=== PATIENT | female | born 1990 | race Caucasian/White ===

== ENCOUNTER 2017-07-20 04:57 | Inpatient (IN) | payer BC ==
[~2017-07-20] VITALS: Ht 160 cm; Wt 73.9 kg
[2017-07-20 06:21] VITALS: BP_SYST 117
[2017-07-20] MEDS ORDERED: DOCUSATE SODIUM 100 MG CAPSULE PO ONE ×2 (12:00→12:07)
[2017-07-20] MEDS ORDERED: DOCUSATE SODIUM 100 MG CAPSULE PO SCH (21:00)
== END 2017-07-21 12:39 | disposition home or self-care (01) | DRG 782 ==
LOC: SPU 04:57 → OBSVTOIN 09:30
PROVIDERS: ADMIT Specialist; ATTEND Specialist
DX: O44.03 Complete placenta previa NOS or without hemorrhage, third trimester (principal); Z3A.34 34 weeks gestation of pregnancy
CPT/HCPCS: 81002-TC; G0378

== ENCOUNTER 2017-07-26 09:00 | Inpatient (IN) | payer BC ==
[~2017-07-26] VITALS: Ht 160 cm; Wt 73.9 kg
[2017-07-26] MEDS ORDERED: LR 1,000 ML IV SCH ×3 (09:24→16:41)
[2017-07-26 10:41] LABS: BASOPHILS % (AUTO) 0.4 % (0.0-2.0); EOSINOPHILS % (AUTO) 0.4 % (0.0-4.0); HEMATOCRIT 36.9 % (36-48); HEMOGLOBIN 12.4 g/dL (12.0-16.0); LYMPHOCYTES # (AUTO) 2.4 K/uL (1.0-5.5); MEAN CORPUSCULAR HEMOGLOBIN 28 pg (27-31); MEAN CORPUSCULAR HGB CONC 34 % (32-36); MEAN CORPUSCULAR VOLUME 84 fL (79.0-98.0); MONOCYTES # (AUTO) 0.7 K/uL (0.0-1.0); MONOCYTES % (AUTO) 6.2 % (1.7-9.3); NEUTROPHILS # (AUTO) 7.7 K/uL (1.8-7.7); PLATELET COUNT (AUTO) 204 K/uL (130-430); WHITE BLOOD COUNT (AUTO) 10.8 K/uL (4.8-10.8)
[2017-07-26] MEDS ORDERED: LR 1,000 ML IV ONE (15:06)
[2017-07-26] MEDS ORDERED: CITRIC ACID/SODIUM CITRATE 30 ML UDC PO ONE (15:15)
[2017-07-26] MEDS ORDERED: CEFAZOLIN 2 GM IVPB PREMIX 50 ML IV ONE ×2 (15:15→15:43)
[2017-07-26] MEDS ORDERED: CITRIC ACID/SODIUM CITRATE 30 ML UDC ONE (15:44)
[2017-07-26] MEDS ORDERED: LR 1,000 ML IV.SOLN IV ONE (15:48)
[2017-07-26] MEDS ORDERED: MORPHINE SULFATE 10MG/10ML PF AMP EP ONE (15:48)
[2017-07-26] MEDS ORDERED: BUPIVACAINE /PF 0.75% 10 ML VIAL INJ ONE (15:48)
[2017-07-26] MEDS ORDERED: NS IRRIG SOLN 1000 ML IR ONE (15:48)
[2017-07-26] MEDS ORDERED: OXYTOCIN 10 UNIT/ML VIAL IV ONE (15:48)
[2017-07-26] MEDS ORDERED: NALOXONE HCL 0.4 MG/ML AMP (NARCAN) IVP PRN (16:15)
[2017-07-26] MEDS ORDERED: MEPERIDINE HCL/PF 25 MG/ML DISP.SYRIN IVP PRN ×2 (16:15)
[2017-07-26] MEDS ORDERED: KETOROLAC TROMETHAMINE 30 MG VIAL IVP PRN ×2 (16:15)
[2017-07-26] MEDS ORDERED: ONDANSETRON HCL 4 MG/2 ML VIAL IVP PRN ×2 (16:15)
[2017-07-26] MEDS ORDERED: NALBUPHINE HCL 10 MG/ML AMP IVP PRN (16:15)
[2017-07-26] MEDS ORDERED: DIPHENHYDRAMINE INJ 50 MG/ML VIAL IVP PRN (16:15)
[2017-07-26] MEDS ORDERED: MORPHINE SULFATE 10MG/10ML PF AMP SP SCH (16:15)
[2017-07-26] MEDS ORDERED: HYDROmorphone 1 MG INJ. 1 MG/ML AMPUL IVP PRN ×2 (16:15)
[2017-07-26] MEDS ORDERED: HYDROmorphone 2 MG/ML VIAL IVP PRN ×2 (16:15)
[2017-07-26] MEDS ORDERED: ePHEDrine sulfate 50 MG/ML VIAL IVP PRN (16:15)
[2017-07-26] MEDS ORDERED: OXYTOCIN/NORMAL SALINE 1,000 ML IV ONE (16:41)
[2017-07-26] MEDS ORDERED: SENNOSIDES/DOCUSATE SODIUM 1 TAB TABLET(SENOKOT-S) PO PRN (16:45)
[2017-07-26] MEDS ORDERED: DOCUSATE SODIUM 100 MG CAPSULE PO PRN (16:45)
[2017-07-26] MEDS ORDERED: MEASLES,MUMPS&RUBELLA VACC/PF 12500 UNIT/0.5 ML VIAL SUBQ PRN (16:45)
[2017-07-26] MEDS ORDERED: BISACODYL 10 MG/SUPPOSITORY RC PRN (16:45)
[2017-07-26] MEDS ORDERED: ANUSOL 1 EA SUPP.RECT (PREPARATION H) RC PRN (16:45)
[2017-07-26] MEDS ORDERED: RHO(D) IMMUNE GLOBULIN/MALTOSE 1500 UNITS/1.3 ML (WINHRO) IM PRN (16:45)
[2017-07-26] MEDS ORDERED: SIMETHICONE 80 MG TAB.CHEW PO PRN (16:45)
[2017-07-26] MEDS ORDERED: LANOLIN 7 GM OINT. TP PRN (16:45)
[2017-07-26] MEDS ORDERED: HYDROcodone/ACETAMIN 5-325 MG TAB (NORCO/ VICODIN) PO PRN (16:45)
[2017-07-26] MEDS ORDERED: OXYCODONE/ACETAMINOPHEN 5-325 TABLET PO PRN ×2 (16:45)
[2017-07-26 17:09] VITALS: BP_SYST 118
[2017-07-26] MEDS ORDERED: CLINDAMYCIN 600 mg/50mL D5W 50 ML IV SCH (18:00)
[2017-07-26] MEDS ORDERED: TEMAZEPAM 15 MG CAPSULE PO PRN (21:00)
[2017-07-26] MEDS: CEFAZOLIN 1 GM IVPB PREMIX 50 ML IV SCH (21:53)
[2017-07-27] MEDS: CEFAZOLIN 1 GM IVPB PREMIX 50 ML IV SCH ×2 (03:58→10:15)
[2017-07-27 06:29] LABS: BASOPHILS # (AUTO) 0.1 K/uL (0.0-0.2); BASOPHILS % (AUTO) 0.4 % (0.0-2.0); EOSINOPHILS % (AUTO) 0.2 % (0.0-4.0); HEMATOCRIT 31.3 % (36-48); HEMOGLOBIN 10.3 g/dL (12.0-16.0); LYMPHOCYTES # (AUTO) 1.9 K/uL (1.0-5.5); LYMPHOCYTES % (AUTO) 14.4 % (20.5-51.5); MEAN CORPUSCULAR HEMOGLOBIN 28 pg (27-31); MEAN CORPUSCULAR HGB CONC 33 % (32-36); MEAN CORPUSCULAR VOLUME 85 fL (79.0-98.0); MONOCYTES # (AUTO) 1.1 K/uL (0.0-1.0); MONOCYTES % (AUTO) 8.5 % (1.7-9.3); NEUTROPHILS % (AUTO) 76.5 % (40.0-70.0); PLATELET COUNT (AUTO) 169 K/uL (130-430); RED BLOOD CELL COUNT(AUTO) 3.71 MIL/uL (4.2-6.2); RED CELL DISTRIBUTION WIDTH 13.3 % (9.0-15.0); WHITE BLOOD COUNT (AUTO) 13.1 K/uL (4.8-10.8)
[2017-07-27] MEDS: IBUPROFEN 600 MG TABLET PO SCH ×2 (12:38→18:12)
[2017-07-28] MEDS: IBUPROFEN 600 MG TABLET PO SCH ×3 (00:01→12:00)
[2017-07-28] MEDS ORDERED: IBUPROFEN 600 MG TABLET PO SCH (06:00)
[2017-07-28] MEDS ORDERED: DIPH-TET-PERTUS Vaccine 0.5 ML VIAL/Tdap (ADACEL) I.M. PRN (10:30)
== END 2017-07-28 15:15 | disposition home or self-care (01) | DRG 765 ==
LOC: SPU 09:00
PROVIDERS: ADMIT Specialist; ATTEND Specialist
PROC: 10D00Z1 Extraction of Products of Conception, Low, Open Approach (ICD-10-PCS; principal; 2017-07-26 15:00)
DX: O44.13 Complete placenta previa with hemorrhage, third trimester (principal); O60.14X0 Preterm labor third trimester with preterm delivery third trimester, not applicable or unspecified; O34.03 Maternal care for unspecified congenital malformation of uterus, third trimester; O32.2XX0 Maternal care for transverse and oblique lie, not applicable or unspecified; Z37.0 Single live birth; Z3A.35 35 weeks gestation of pregnancy; Q51.3 Bicornate uterus
CPT/HCPCS: 36415; 85025; 86592; 86886; 86900; 86901; 86920; 90715; 94760; J0690; J2274; J2590; J3490; J7120